=== PATIENT | female | born 1950 | race Caucasian/White ===

== ENCOUNTER 2016-05-18 14:30 | Inpatient (IN) | payer OTHER ==
[~2016-05-18] VITALS: Ht 167.6 cm; Wt 63.5 kg
--- NOTE | 2016-05-18 14:30 | NUR ---
PT BB SELF FROM HOME FOR ABD PAIN X 3 DAYS. NAD NOTED. PT AAO X4, AMBULATORY WITH STEADY GAIT. PT PLACED IN GOWN AND MONITOR. AWAITING MD FOR EVAL.
[2016-05-18 14:53] LABS: BASOPHILS # (AUTO) 0.3 /CMM (0.0-0.2); BASOPHILS % (AUTO) 1.7 % (0.0-2.0); EOSINOPHILS % (AUTO) 0.3 % (0.0-6.0); HEMATOCRIT 39 % (33-45); LYMPHOCYTES % (AUTO) 12.6 % (20.0-44.0); MEAN CORPUSCULAR HEMOGLOBIN 33 PG (26.0-33.0); MEAN CORPUSCULAR HGB CONC 33 g/dl (31.0-36.0); MEAN CORPUSCULAR VOLUME 100 fL (82-100); MONOCYTES # (AUTO) 0.8 /CMM (0.1-1.30); MONOCYTES % (AUTO) 4.9 % (2.0-12.0); NEUTROPHILS # (AUTO) 12.5 /CMM (1.8-8.9); NEUTROPHILS % (AUTO) 80.5 % (43.0-81.0); PLATELET COUNT (AUTO) 249 /CMM (150-450); RDW COEFFICIENT OF VARIATION 13.1 (11.5-15.0); RED BLOOD CELL COUNT(AUTO) 3.91 MIL/uL (4.0-5.2); WHITE BLOOD COUNT (AUTO) 15.6 K/uL (4.3-11.0)
[2016-05-18 14:54] LABS: APPEARANCE,URINE Slightly Cloudy (CLEAR); BILIRUBIN,URINE Negative (NEGATIVE); BLOOD, URINE Moderate Ery/uL (NEGATIVE); COLOR,URINE Yellow (YELLOW); KETONES,URINE Negative (NEGATIVE); LEUKOCYTE ESTERASE ,URINE Small (NEGATIVE); NITRITE, URINE Positive (NEGATIVE); PH,URINE 5.5 (5.0-8.0); PROTEIN,URINE Negative (NEGATIVE); UGLUCOSE Negative (NEGATIVE); UROBILINOGEN,URINE 0.2 EU/dL (0.2)
[2016-05-18 14:58] LABS: ADD URINE CULTURE YES; BACTERIA,URINE Few /HPF (None Seen); RBC,URINE 0-2 /HPF (0-2); URINE AMORPHOUS URATE Few /HPF (None Seen)
[2016-05-18] MEDS ORDERED: MORPHINE SULFATE INJ 2 MG/ML DISP.SYRIN IV ONE (15:00)
[2016-05-18] MEDS ORDERED: ONDANSETRON HCL/PF - ER 4 MG/2 ML VIAL IV ONE (15:00)
[2016-05-18 15:02] LABS: CALCIUM, SERUM 9.3 mg/dL (8.5-10.1); POTASSIUM 3.1 mmol/L (3.5-5.1)
[2016-05-18 15:09] LABS: ALBUMIN 3.6 g/dL (3.4-5.0); BILIRUBIN,DIRECT 0.1 mg/dL (0.0-0.2); BILIRUBIN,TOTAL 0.6 mg/dL (0.2-1.0); TOTAL PROTEIN, SERUM 7.5 g/dL (6.4-8.2)
[2016-05-18] MEDS ORDERED: IV NS 0.9% 250 ML IV ONE (15:17)
[2016-05-18] MEDS ORDERED: MORPHINE SULFATE INJ 2 MG/ML DISP.SYRIN ONE (15:17)
[2016-05-18] MEDS ORDERED: ONDANSETRON HCL/PF 4 MG/2 ML VIAL ONE (15:17)
[2016-05-18] MEDS ORDERED: IOHEXOL-300 100 ML VIAL IV ONE (15:18)
[2016-05-18] MEDS ORDERED: IV NS 0.9% 500 ML IV ONE (16:54)
[2016-05-18] MEDS ORDERED: IV SET PRIMARY 1 EA INFUS.SET MC ONE (16:54)
[2016-05-18] MEDS ORDERED: IV NS 0.9% 500 ML BAG IV ONE (17:00)
--- NOTE | 2016-05-18 17:00 | NUR ---
PAGED DR BARRON AND CALLED NURSING SUP FOR MED/SURG BED
[2016-05-18] MEDS ORDERED: SIMV20TA6 PO (17:08)
[2016-05-18] MEDS ORDERED: LORA10TA7 PO (17:08)
[2016-05-18] MEDS ORDERED: LEVO50TA8 PO (17:08)
[2016-05-18] MEDS ORDERED: ZOLP5TAB2 PO (17:08)
[2016-05-18] MEDS ORDERED: LORA-258 PO (17:08)
[2016-05-18] MEDS ORDERED: ERGO50003 PO (17:08)
--- NOTE | 2016-05-18 17:16 | NUR ---
REPORT GIVEN TO VETO GOODRICH FOR AR
[2016-05-18] MEDS ORDERED: ONDANSETRON HCL/PF 4 MG/2 ML VIAL IVP PRN (18:00)
[2016-05-18] MEDS ORDERED: MORPHINE SULFATE INJ 2 MG/ML DISP.SYRIN IV PRN (18:00)
--- NOTE | 2016-05-18 18:10 | NUR ---
RN MS NOTES RECEIVED PT FROM E.R. STAFF VIA WHEELCHAIR, PT IS ALERT AND ORIENTED, X 4, ASSISTED TO BED, MADE COMFORTABLE, STILL WITH ABDOMINAL PAIN 5/10, NOT IN DISTRESS, ROOM SET UP ORIENTATION PROVIDED TO PT, ASSESSMENT DONE, CALL LIGHT WITHIN REACH, NEEDS ATTENDED.
[2016-05-18 18:31] VITALS: BP 128/65
--- NOTE | 2016-05-18 19:30 | NUR ---
MS [place] INITIAL NOTES RECEIVED REPORT FROM AM NURSE, AND CHECKED THE PT. DX OF PANCREATITIS. PT IN MED AWAKE AND ALERT WATCHING TV ,NO NV/ , COMPLAINING OF PAIN BUT MANAGEABLE AT THIS TIME AND SHE STATED MAYBE LATER "I WILL CALL YOU ". SHE'S NPO AT THIS TIME AND PT AWARE. KEPT HER COMFORTABLE AT ALL TIMES. PLACE CALL LIGHT AT REACH. WILL CONTINUE TO MONITOR.
[2016-05-18] MEDS ORDERED: IV SET PRIMARY PUMP SET 1 EA INFUS.SET MC ONE (19:35)
[2016-05-18 20:00] VITALS: BP 112/66
[2016-05-18] MEDS: IV NS 0.9% 1,000 ML IV PRN (20:39)
[2016-05-18] MEDS ORDERED: ZOLPIDEM TARTRATE 5 MG TABLET ONE (21:13)
[2016-05-18] MEDS ORDERED: ZOLPIDEM TARTRATE 5 MG TABLET PO PRN (21:30)
--- NOTE | 2016-05-18 21:30 | NUR ---
MS [place] NOTES AMBIEN GIVEN PO PER PT REQUESTED AND MD ORDERED. PER DR SHARMA OK TO GIVEN AMBIEN WITH SIP OF WATER. SAFETY PRECAUTION OBSERVED. IVF REMAINS INFUSING AT 150ML/HR ON HER RIGHT AC PATENT AND NO REDNESS NOTED. WILL CONTINUE TO MONITOR.
--- NOTE | 2016-05-19 | NUR ---
MS JUDICIAL CLERK NOTES PT SLEEPING AT THIS TIME , BREATHING EVEN AND UNLABORED. KEPT HER WARM AND COMFORTABLE AT ALL TIMES. PLACE CALL LIGHT AT REACH.
[2016-05-19] MEDS: IV NS 0.9% 1,000 ML IV PRN (05:24)
--- NOTE | 2016-05-19 06:59 | NUR ---
MS GRINDER LAP CLOSING NOTES PT REMAINS SLEEPING COMFORTABLY IN BED BUT AROUSES TO TOUCH, ASKED IF SHE HAVE ANY PAIN BUT SHE STATES STILL ALMOST THE SAME LIKE LAST NIGHT, MANAGEABLE, NO N/V NOTED. IVF NS A 150ML/HR STILL INFUSING. SLEPT WELL AFTER AMBIEN GIVEN LAST NIGHT , WOKE UP ONCE IN A WHILE TO USED THE RESTROOM. KEPT HER COMFORTABLE AT ALL TIMES. WILL ENDORSE TO AM NURSE.
[2016-05-19 07:13] LABS: BASOPHILS % (AUTO) 0.2 % (0.0-2.0); EOSINOPHILS % (AUTO) 0.3 % (0.0-6.0); HEMATOCRIT 35 % (33-45); HEMOGLOBIN 11.8 g/dL (11.5-14.8); LYMPHOCYTES # (AUTO) 1.4 /CMM (0.8-4.8); LYMPHOCYTES % (AUTO) 11.5 % (20.0-44.0); MEAN CORPUSCULAR HEMOGLOBIN 33 PG (26.0-33.0); MEAN CORPUSCULAR HGB CONC 34 g/dl (31.0-36.0); MEAN CORPUSCULAR VOLUME 98 fL (82-100); MONOCYTES # (AUTO) 1.1 /CMM (0.1-1.30); MONOCYTES % (AUTO) 8.8 % (2.0-12.0); NEUTROPHILS % (AUTO) 79.2 % (43.0-81.0); PLATELET COUNT (AUTO) 230 /CMM (150-450); RDW COEFFICIENT OF VARIATION 13.7 (11.5-15.0); RED BLOOD CELL COUNT(AUTO) 3.57 MIL/uL (4.0-5.2); WHITE BLOOD COUNT (AUTO) 12.6 K/uL (4.3-11.0)
[2016-05-19] MEDS ORDERED: LEVOTHYROXINE SODIUM 50 MCG TABLET PO SCH (07:30)
--- NOTE | 2016-05-19 07:36 | NUR ---
AM RN NOTE Received patient awake A/O X3, lying in her bed. Denies any pain at this time. Continue on IV fluids as ordered, IV site intact and patent. Bed in low locked position. Will continue to monitor.
[2016-05-19 07:43] LABS: ALBUMIN 2.6 g/dL (3.4-5.0); BILIRUBIN,TOTAL 0.6 mg/dL (0.2-1.0); CALCIUM, SERUM 8.2 mg/dL (8.5-10.1); MAGNESIUM 1.7 mg/dL (1.8-2.4); PHOSPHORUS 2.7 mg/dL (2.5-4.9); POTASSIUM 3.4 mmol/L (3.5-5.1); TOTAL PROTEIN, SERUM 6.3 g/dL (6.4-8.2)
[2016-05-19 07:54] LABS: THYROID STIMULATING HORMONE 4.273 uIU/mL (0.358-3.74)
[2016-05-19 08:00] VITALS: BP 107/58
[2016-05-19] MEDS ORDERED: PANTOPRAZOLE 40 MG VIAL IV SCH (09:00)
--- NOTE | 2016-05-19 09:05 | NUR ---
AM RN NOTE Patient IV site noted with leakage, re-inserted new site on right forearm #22 x1 attempt. IV fluids continue as ordered. Will continue to monitor. On NPO status.
[2016-05-19] MEDS ORDERED: SECONDARY IV SET 1 EA INFUS.SET MC ONE (11:56)
[2016-05-19] MEDS: POTASSIUM CL. PREMIX PERIPHER. 50 ML IV SCH ×2 (12:08→12:38)
[2016-05-19] MEDS ORDERED: Magnesium 1GM/D5W 100ML PREMIX 100 ML IV SCH (12:25)
[2016-05-19] MEDS ORDERED: MAGNESIUM OXIDE 400 MG TABLET PO ONE (13:46)
[2016-05-19] MEDS ORDERED: POTASSIUM CHLORIDE 10 MEQ TABLET.SA PO ONE (13:47)
--- NOTE | 2016-05-19 14:26 | NUR ---
AM RN NOTE Patient awake, A/O X4 refused another beg of potassium IV and refused Mg IV. Patient prefers PO medication. Called pharmacy spoke with Jackeline olson aware. Medications changed to PO and given to pt. aware.
--- NOTE | 2016-05-19 15:00 | NUR ---
RN NOTE Patient skin intact.
--- NOTE | 2016-05-19 15:30 | NUR ---
AM RN NOTE Patient awake, A/O X4 verbally responsive. Tolerated clear liquid diet well. Denies any pain at this time. New order given by Dr. Richardson to discharge pt home. Discharge instructions on medication, food and teachings given to pt and shows understanding. Paperwork signed by patient. Belongings endorsed. ID band and HL removed. Patient left unit in a w/c at this time as accompanied by RESEARCH PROJECT COORDINATOR and daughter in law (Lucy) to downstairs with all her belongings.
== END 2016-05-19 15:30 | disposition home or self-care (01) | DRG 282 ==
LOC: ER 14:32 → MED 17:56
DX: K85.90 Acute pancreatitis without necrosis or infection, unspecified (principal); K76.0 Fatty (change of) liver, not elsewhere classified; N20.0 Calculus of kidney; Z79.899 Other long term (current) drug therapy; Z87.442 Personal history of urinary calculi; E78.5 Hyperlipidemia, unspecified; E87.6 Hypokalemia; F17.210 Nicotine dependence, cigarettes, uncomplicated; N39.0 Urinary tract infection, site not specified; B96.20 Unspecified Escherichia coli [E. coli] as the cause of diseases classified elsewhere
CPT/HCPCS: 36415; 76705-TC; 80048-TC; 80053-TC; 80061-TC; 80076-TC; 81000-TC; 83690-TC; 83735-TC; 84100-TC; 84443-TC; 84484-TC; 85025-TC; 87081-TC; 87086-TC; 87186-TC; A4606; C9113; J2270; J2405; J3480; J7030; J7040; J7050; Q9967; Z7610

== ENCOUNTER 2017-02-02 07:17 | Outpatient (CLI) | payer MEDICARE, OTHER ==
[~2017-02-02 07:17] MED LIST: ERGO50003 PO; LEVO50TA8 PO; LORA-258 PO; LORA10TA7 PO; SIMV20TA6 PO; ZOLP5TAB2 PO
[2017-02-02] MEDS ORDERED: REGADENOSON 0.4 MG/5 ML DISP.SYRIN IVP ONE (08:00)
== END 2017-02-02 23:59 | disposition home or self-care (01) ==
LOC: NM 07:17
PROVIDERS: ATTEND Internal Medicine Interventional Cardiology
DX: R07.9 Chest pain, unspecified (principal); R06.02 Shortness of breath; F17.200 Nicotine dependence, unspecified, uncomplicated
CPT/HCPCS: 78452; A9502; J2785

== ENCOUNTER 2017-02-11 08:37 | Outpatient (CLI) | payer MEDICARE, OTHER ==
[~2017-02-11 08:37] MED LIST changes: +ERGO500014 PO; -ERGO50003 PO
== END 2017-02-12 23:59 | disposition home or self-care (01) ==
LOC: CT 08:37
PROVIDERS: ATTEND Internal Medicine Interventional Cardiology
DX: R91.8 Other nonspecific abnormal finding of lung field (principal); J92.9 Pleural plaque without asbestos; I25.10 Atherosclerotic heart disease of native coronary artery without angina pectoris; N28.1 Cyst of kidney, acquired; M85.88 Other specified disorders of bone density and structure, other site; Z87.891 Personal history of nicotine dependence
CPT/HCPCS: 71250-TC

== ENCOUNTER → 2017-04-15 | Outpatient (CLI) | payer MEDICARE, OTHER | LOC: CT 09:26 | PROVIDERS: ATTEND Internal Medicine Pulmonary Disease | DX: R91.8 Other nonspecific abnormal finding of lung field (principal); I70.0 Atherosclerosis of aorta; M47.894 Other spondylosis, thoracic region | CPT/HCPCS: 71250-TC ==

== ENCOUNTER 2017-05-04 11:05 | Outpatient (CLI) | payer MEDICARE, OTHER | END 2017-05-04 23:59 | disposition home or self-care (01) | LOC: RAD 11:05 | PROVIDERS: ATTEND Internal Medicine Interventional Cardiology | DX: M89.8X8 Other specified disorders of bone, other site (principal) | CPT/HCPCS: 72070-TC ==

== ENCOUNTER 2017-09-12 07:55 | Outpatient (CLI) | payer MEDICARE, OTHER | END 2017-09-12 23:59 | disposition home or self-care (01) | LOC: WOU 07:55 | PROVIDERS: ATTEND Podiatrist Foot & Ankle Surgery | DX: M79.671 Pain in right foot (principal); M20.21 Hallux rigidus, right foot; R26.89 Other abnormalities of gait and mobility; M21.769 Unequal limb length (acquired), unspecified tibia and fibula; E78.5 Hyperlipidemia, unspecified; Z72.0 Tobacco use; E07.9 Disorder of thyroid, unspecified | CPT/HCPCS: G0463; Z7610 ==

== ENCOUNTER 2017-09-12 09:22 | Outpatient (CLI) | payer MEDICARE, OTHER | END 2017-09-12 23:59 | disposition home or self-care (01) | LOC: RAD 09:22 | PROVIDERS: ATTEND Podiatrist Foot & Ankle Surgery | DX: M79.671 Pain in right foot (principal) | CPT/HCPCS: 73630-TC ==

== ENCOUNTER 2017-09-15 12:43 | Outpatient (CLI) | payer MEDICARE, OTHER | END 2017-09-15 23:59 | disposition home or self-care (01) | LOC: WOU 12:43 | PROVIDERS: ATTEND Podiatrist Foot & Ankle Surgery | DX: M20.21 Hallux rigidus, right foot (principal); R26.89 Other abnormalities of gait and mobility; M21.769 Unequal limb length (acquired), unspecified tibia and fibula | CPT/HCPCS: G0463; Z7610 ==

== ENCOUNTER 2017-11-30 11:15 | Outpatient (CLI) | payer MEDICARE, OTHER ==
[2017-11-30 11:37] LABS: BASOPHILS # (AUTO) 0.1 /CMM (0.0-0.2); BASOPHILS % (AUTO) 1.1 % (0.0-2.0); EOSINOPHILS % (AUTO) 0.7 % (0.0-6.0); HEMATOCRIT 41 % (33-45); HEMOGLOBIN 13.5 g/dL (11.5-14.8); LYMPHOCYTES # (AUTO) 2.3 /CMM (0.8-4.8); LYMPHOCYTES % (AUTO) 28.4 % (20.0-44.0); MEAN CORPUSCULAR HGB CONC 33 g/dl (31.0-36.0); MEAN CORPUSCULAR VOLUME 97 fL (82-100); MONOCYTES # (AUTO) 0.5 /CMM (0.1-1.30); MONOCYTES % (AUTO) 5.9 % (2.0-12.0); NEUTROPHILS # (AUTO) 5.2 /CMM (1.8-8.9); NEUTROPHILS % (AUTO) 63.9 % (43.0-81.0); PLATELET COUNT (AUTO) 331 /CMM (150-450); RDW COEFFICIENT OF VARIATION 12.7 (11.5-15.0); RED BLOOD CELL COUNT(AUTO) 4.18 MIL/uL (4.0-5.2); WHITE BLOOD COUNT (AUTO) 8.2 K/uL (4.3-11.0)
[2017-11-30 11:52] LABS: ALBUMIN 3.5 g/dL (3.4-5.0); BILIRUBIN,TOTAL 0.4 mg/dL (0.2-1.0); CALCIUM, SERUM 9.7 mg/dL (8.5-10.1); CREATININE 1.1 mg/dL (0.6-1.3); POTASSIUM 3.6 mmol/L (3.5-5.1); TOTAL PROTEIN, SERUM 7.6 g/dL (6.4-8.2)
[2017-11-30 12:00] LABS: THYROID STIMULATING HORMONE 0.763 uIU/mL (0.358-3.74)
== END 2017-11-30 23:59 | disposition home or self-care (01) ==
LOC: LAB 11:15
PROVIDERS: ATTEND Internal Medicine Interventional Cardiology
DX: E78.5 Hyperlipidemia, unspecified (principal); E03.9 Hypothyroidism, unspecified; R53.83 Other fatigue
CPT/HCPCS: 36415; 80053-TC; 80061-TC; 84439-TC; 84443-TC; 85025-TC

== ENCOUNTER 2018-06-19 08:34 | Outpatient (CLI) | payer MEDICARE, OTHER | END 2018-06-19 23:59 | disposition home or self-care (01) | LOC: CT 08:34 | DX: K57.30 Diverticulosis of large intestine without perforation or abscess without bleeding (principal); K44.9 Diaphragmatic hernia without obstruction or gangrene; K42.9 Umbilical hernia without obstruction or gangrene; K76.89 Other specified diseases of liver; N26.1 Atrophy of kidney (terminal) ==

== ENCOUNTER 2018-08-23 08:34 | Outpatient (CLI) | payer MEDICARE, OTHER | END 2018-08-23 23:59 | disposition home or self-care (01) | LOC: RAD 08:34 | DX: Z01.818 Encounter for other preprocedural examination (principal); I70.0 Atherosclerosis of aorta; I51.7 Cardiomegaly | CPT/HCPCS: 71046 ==

== ENCOUNTER 2018-09-22 05:18 | Inpatient (IN) | payer MEDICARE, OTHER ==
[~2018-09-22] VITALS: Ht 160 cm; Wt 77.3 kg
[2018-09-22] VITALS (10 sets, daily range): BP systolic 99–108; BP diastolic 45–65
--- NOTE | 2018-09-22 05:30 | NUR ---
MS RN NOTES RECEIVED PT FROM HOME IN STABLE CONDITION FOR DAY SURGERY. PT A/O X3 AND ABLE TO MAKE NEEDS KNOWN. NO COMPLAINTS OF PAIN AT THIS TIME. PT WITH WALKER. RESPIRATIONS EVEN AND UNLABORED WITH NO S/S OF ACUTE DISTRESS OR SOB NOTED. ORIENTED PT TO UNIT AND ROOM AND PT VERBALIZED UNDERSTANDING. SAFETY MEASURES IN PLACE WITH BED IN LOWEST LOCKED POSITION WITH SIDE RAILS UP X2. CALL LIGHT WITHIN REACH. WILL CONTINUE TO MONITOR.
[2018-09-22] MEDS ORDERED: METOCLOPRAMIDE HCL 10 MG/2 ML VIAL IV ONE (06:00)
[2018-09-22] MEDS ORDERED: SODIUM CHLORIDE IRRIG IR ONE (06:00)
[2018-09-22] MEDS ORDERED: TRANEXAMIC ACID IR ONE (06:00)
[2018-09-22] MEDS ORDERED: oxyCODONE HCL SR 10MG TAB.SR.12H PO ONE (06:00)
[2018-09-22] MEDS ORDERED: CELECOXIB 100 MG CAPSULE PO ONE (06:00)
[2018-09-22] MEDS ORDERED: ACETAMINOPHEN ES 500 MG TABLET PO ONE (06:00)
--- NOTE | 2018-09-22 06:05 | NUR ---
MS GOODRICH NOTES PT LEFT UNIT WITH SURGERY. Addendum: 09/22/18 at 0804 by FRANK LEES RN WRONG TIME PUT PT LEFT [id number].
[2018-09-22] MEDS ORDERED: KETOROLAC TROMETHAMINE INJ 30 MG/ML VIAL ONE ×2 (06:48→10:48)
[2018-09-22] MEDS ORDERED: BUPIVACAINE MPF 0.5% W/EPI INJ 30 ML VIAL ONE (06:49)
[2018-09-22] MEDS ORDERED: ANESTHESIA TRAY IN PYXIS 1 EA TRAY MC ONE (06:49)
[2018-09-22] MEDS ORDERED: BACITRACIN 50000 UNITS/VIAL ONE (06:49)
[2018-09-22] MEDS ORDERED: MORPHINE SULFATE INJ 4 MG/ML DISP.SYRIN ONE (06:49)
[2018-09-22] MEDS ORDERED: BUPIVACAINE 0.5 % PF 150 MG/30 ML VIAL ONE (06:49)
[2018-09-22] MEDS ORDERED: ROCURONIUM BROMIDE 50 MG/5 ML ONE ×2 (07:03→08:05)
[2018-09-22] MEDS ORDERED: HYDROMORPHONE INJ 2 MG/ML DISP.SYRIN ONE (07:03)
[2018-09-22] MEDS ORDERED: oxyCODONE IR immediate release 5 MG ONE (10:47)
[2018-09-22] MEDS ORDERED: oxyCODONE IR immediate release 5 MG PO ONE (11:00)
[2018-09-22] MEDS ORDERED: ASPIRIN EC 325 MG TABLET.DR PO ONE (11:00)
[2018-09-22] MEDS ORDERED: KETOROLAC TROMETHAMINE INJ 30 MG/ML VIAL IV ONE (11:30)
[2018-09-22] MEDS ORDERED: HYDROCODONE/APAP 5/325MG 1 EACH TABLET PO PRN ×2 (11:30→13:00)
--- NOTE | 2018-09-22 12:20 | NUR ---
MS RN NOTES PATIENT ARRIVED AT UNIT AT 1215 WITH 2 CLOTH WINDER MACHINE OPERATOR VIA HOSPITAL BED FROM SURGERY, REPORT RECEIVED FROM JEANINE GOODRICH. A/O X 4. ON OXYGEN 2LPM VIA MASK. WITH IVF ON RFA #20 INFUSING WELL. PROVIDED WITH INCENTIVE SPIROMETRY. DRESSING ON RIGHT HIP INTACT. NO ACUTE DISTRESS NOTED AT THIS TIME. PATIENT DENIES ANY PAIN OR DISCOMFORT AT THIS TIME. PATIENT WITH NEW ORDERS FROM DR. CHIN, NOTED AND CARRIED OUT. PATIENT MADE AWARE AND VERBALIZED UNDERSTANDING. WILL CONTINUE TO MONITOR.
[2018-09-22] MEDS ORDERED: Z GUARD REMEDY 2 OZ OINT TP PRN (13:00)
[2018-09-22] MEDS ORDERED: MAGNESIUM HYDROXIDE 30 ML UDC PO PRN ×2 (13:00→13:30)
[2018-09-22] MEDS ORDERED: LORAZEPAM 0.5 MG TABLET PO PRN (13:00)
[2018-09-22] MEDS ORDERED: ACETAMINOPHEN 325 MG TABLET PO PRN ×2 (13:00→13:30)
[2018-09-22] MEDS ORDERED: MAG HYDROX/AL HYDROX/SIMETH 30 ML UDC PO PRN (13:00)
[2018-09-22] MEDS ORDERED: HYDROMORPHONE 1 MG/1 ML DISP.SYRIN IV PRN (13:30)
[2018-09-22] MEDS ORDERED: IV D5/0.45 NACL 1,000 ML IV PRN (13:30)
[2018-09-22] MEDS ORDERED: COLACE 100 MG CAPSULE PO PRN (13:30)
[2018-09-22] MEDS ORDERED: DULCOLAX 10 MG/SUPP.RECT RC PRN (13:30)
[2018-09-22] MEDS ORDERED: AMBIEN 5 MG TABLET PO PRN (13:30)
[2018-09-22] MEDS: ONDANSETRON HCL/PF 4 MG/2 ML VIAL IV SCH ×3 (13:50→23:37)
[2018-09-22] MEDS: HYDROCODONE/APAP 5/325MG 1 EACH TABLET PO PRN (14:13)
[2018-09-22] MEDS: ANCEF 1 G in IV D5W 50 ML IV SCH ×2 (15:13→23:29)
[2018-09-22] MEDS ORDERED: KETOROLAC TROMETHAMINE INJ 30 MG/ML VIAL IV SCH (17:00)
[2018-09-22] MEDS: ASPIRIN 325 MG TABLET PO SCH (17:05)
[2018-09-22] MEDS ORDERED: DICL1KIT14 TP (17:41)
[2018-09-22] MEDS ORDERED: RIVA10TA PO (17:41)
[2018-09-22] MEDS ORDERED: NAPR500T6 PO (17:41)
[2018-09-22] MEDS ORDERED: DRON400T2 PO (17:41)
[2018-09-22] MEDS ORDERED: DICL1ADH11 TP (17:42)
[2018-09-22] MEDS: KETOROLAC TROMETHAMINE 15 MG/ML VIAL IV SCH ×2 (18:53→23:30)
--- NOTE | 2018-09-22 18:58 | NUR ---
MS RN CLOSING NOTES PATIENT AWAKE AND RESTING IN BED AT MODERATE HIGH BACK REST POSITION. A/O X 4. ABLE TO MAKE NEEDS KNOWN. NO SOB NOTED. IV FLUIDS ON RIGHT FA #20 INFUSING WELL. ON F/C PATENT AND INTACT, NO HEMATURIA NOTED. DRESSING INTACT AT RIGHT HIP, S/P RIGHT HIP TOTAL ARTHROPLASTY. ALL NURSING NEEDS AND CARE ATTENDED. CALL LIGHT WITHIN EASY REACH. SAFETY MEASURES KEPT, BED IN LOW LOCKED POSITION, SIDE RAILS UP X2. WILL ENDORSE TO BRANCH SERVICES MANAGER FOR AR.
--- NOTE | 2018-09-22 19:15 | NUR ---
MS RN PM OPENING NOTES BEDSIDE REPORT RECIEVED. PATIENT AWAKE IN BED SEMIFOWLERS POSITION. A/O X 4. NO SOB NOTED. IV FLUIDS ON RIGHT FA #20 WITH NO S/S OF INFILTRATION. F/C DRAINING YELLOW URINE, NO HEMATURIA NOTED. DRESSING [employer] AT RIGHT HIP, HAD S/P RIGHT HIP TOTAL ARTHROPLASTY TODAY. CALL LIGHT WITHIN REACH. BED IN LOW LOCKED POSITION, SIDE RAILS UP X2. WILL CONT TO MONITOR.
[2018-09-22] MEDS: CELECOXIB 100 MG CAPSULE PO SCH (20:51)
[2018-09-22] MEDS: ZOLPIDEM TARTRATE 5 MG TABLET PO SCH (21:11)
[2018-09-23] MEDS: ONDANSETRON HCL/PF 4 MG/2 ML VIAL IV SCH (06:00)
--- NOTE | 2018-09-23 06:00 | NUR ---
rn pm closing note PATIENT AWAKE IN BED SEMIFOWLERS POSITION. A/O X 4. NO SOB NOTED. IV FLUIDS ON RIGHT FA #20 WITH NO S/S OF INFILTRATION. F/C DRAINING YELLOW URINE, NO HEMATURIA NOTED. DRESSING [employer] AT RIGHT HIP, CALL LIGHT WITHIN REACH. BED IN LOW LOCKED POSITION, SIDE RAILS UP X2.
[2018-09-23] MEDS: KETOROLAC TROMETHAMINE 15 MG/ML VIAL IV SCH ×3 (06:20→17:47)
[2018-09-23] MEDS: HYDROCODONE/APAP 5/325MG 1 EACH TABLET PO PRN ×2 (06:25→20:09)
[2018-09-23 06:34] LABS: BASOPHILS % (AUTO) 0.2 % (0.0-2.0); EOSINOPHILS % (AUTO) 0.2 % (0.0-6.0); HEMATOCRIT 30 % (33-45); HEMOGLOBIN 10.1 g/dL (11.5-14.8); LYMPHOCYTES # (AUTO) 1.7 /CMM (0.8-4.8); MEAN CORPUSCULAR HGB CONC 34 g/dl (31.0-36.0); MEAN CORPUSCULAR VOLUME 96 fL (82-100); MONOCYTES # (AUTO) 1.1 /CMM (0.1-1.30); MONOCYTES % (AUTO) 8.7 % (2.0-12.0); NEUTROPHILS # (AUTO) 9.4 /CMM (1.8-8.9); NEUTROPHILS % (AUTO) 76.9 % (43.0-81.0); PLATELET COUNT (AUTO) 271 /CMM (150-450); RED BLOOD CELL COUNT(AUTO) 3.13 MIL/uL (4.0-5.2); WHITE BLOOD COUNT (AUTO) 12.2 K/uL (4.3-11.0)
[2018-09-23 07:00] LABS: CALCIUM, SERUM 8.2 mg/dL (8.5-10.1); CREATININE 1.1 mg/dL (0.6-1.3); MAGNESIUM 1.7 mg/dL (1.8-2.4); PHOSPHORUS 2.7 mg/dL (2.5-4.9); POTASSIUM 3.9 mmol/L (3.5-5.1)
--- NOTE | 2018-09-23 07:28 | NUR ---
MS RN OPENING NOTES RECEIVED PATIENT IN BED RESTING COMFORTABLY. A/O X 4. ABLE TO MAKE NEEDS KNOWN. ON RA, TOLERATING WELL. IV ACCESS ON RIGHT FA, PATENT AND INTACT, CURRENTLY ON HL. NOTED WITH F/C, DRAINING WITH YELLOW URINE. NO HEMATURIA NOTED. NOTED WITH CD[employer] DRESSING ON RIGHT HIP, S/P RIGHT HIP TOTAL ARTHROPLASTY. SAFETY MEASURES IN PLACE, BED IN LOW LOCKED POSITION, SIDE RAILS UP X2. CALL LIGHT WITHIN EASY REACH. WILL CONTINUE TO MONITOR.
[2018-09-23 08:00] VITALS: BP 101/59
[2018-09-23] MEDS: LORATADINE 10 MG TABLET PO SCH (08:05)
[2018-09-23] MEDS: LEVOTHYROXINE SODIUM 50 MCG TABLET PO SCH (08:05)
[2018-09-23] MEDS: ASPIRIN 325 MG TABLET PO SCH ×2 (08:06→16:59)
[2018-09-23] MEDS: CELECOXIB 100 MG CAPSULE PO SCH ×2 (08:06→21:06)
[2018-09-23] MEDS: SIMVASTATIN 20 MG TABLET PO SCH (08:06)
[2018-09-23] MEDS: Magnesium 1GM/D5W 100ML PREMIX 100 ML IV SCH ×2 (10:26→11:39)
[2018-09-23] MEDS ORDERED: ONDANSETRON HCL/PF 4 MG/2 ML VIAL IVP PRN (12:00)
[2018-09-23 16:00] VITALS: BP 99/51
--- NOTE | 2018-09-23 18:45 | NUR ---
MS RN CLOSING NOTES PATIENT IN BED RESTING COMFORTABLY. A/O X 4. ON RA, TOLERATING WELL. IV ACCESS ON RIGHT FA, PATENT AND INTACT, CURRENTLY ON HL. NOTED WITH F/C, DRAINING WITH YELLOW URINE . NOTED WITH [employer] DRESSING ON RIGHT HIP, S/P RIGHT HIP TOTAL ARTHROPLASTY. SAFETY MEASURES IN PLACE, BED IN LOW LOCKED POSITION, SIDE RAILS UP X2. CALL LIGHT WITHIN EASY REACH. WILL ENDORSE TO ENGRAVER WOOD NURSE.
--- NOTE | 2018-09-23 19:00 | NUR ---
RN MS OPENING NOTES RECEIVED PATIENT IN BED AWAKE ALERT AND ORIENTED X4, RESPIRATIONS EVEN AND UNLABORED WITH EQUAL RISE AND FALL OF CHEST, DENIES ANY PAIN OR DISCOMFORT AT THIS TIME, PERKINS CATHETER INTACT AND PATENT DRAINING YELLOW CLEAR, RIGHT HIP DRESSING INTACT , CLEAN AND DRY, SCD'S IN PLACE, IV SITE TO RIGHT FA #20 SL, ORIENTED TO STAFF AND CALL LIGHT AND KEPT WITHIN REACH, PATIENT REPOSITIONED, LOW BED AND LOCKED, SAFETY PRECAUTIONS IN PLACE, ALL NEEDS ATTENDED AT THIS TIME REMAINS COMFORTABLE.
[2018-09-23 20:00] VITALS: BP 106/64
--- NOTE | 2018-09-23 20:09 | NUR ---
RN MS NOTES PATIENT COMPLAINT OF PAIN TO RIGHT LEG, STATES 4-5/10 ACHING PAIN, REQUESTING FOR PAIN MEDICATION , NORCO PRN OFFERED PATIENT AGREED, NORCO PRN GIVEN , VS WNL. WILL CONTINUE TO MONITOR FOR EFFECTIVENESS, PATIENT REPOSITIONED FOR COMFORT.
[2018-09-23] MEDS: ZOLPIDEM TARTRATE 5 MG TABLET PO SCH (21:06)
[2018-09-24] MEDS: KETOROLAC TROMETHAMINE 15 MG/ML VIAL IV SCH ×3 (00:57→12:09)
--- NOTE | 2018-09-24 04:51 | NUR ---
RN MS NOTES PATIENT MADE AWARE OF MD DR. CHIN PLAN OF CARE TO D/C PERKINS IN AM, PATIENT WOULD LIKE TO HAVE IT REMOVED AT THIS TIME, F/C REMOVED PER MD ORDERED, WILL MONITOR FOR URINARY RETENTION OR DIFFICULTY URINATING THROUGHOUT SHIFT.
[2018-09-24 06:12] LABS: BASOPHILS % (AUTO) 0.3 % (0.0-2.0); EOSINOPHILS % (AUTO) 1.5 % (0.0-6.0); HEMATOCRIT 32 % (33-45); HEMOGLOBIN 10.5 g/dL (11.5-14.8); LYMPHOCYTES % (AUTO) 21.3 % (20.0-44.0); MEAN CORPUSCULAR HGB CONC 33 g/dl (31.0-36.0); MEAN CORPUSCULAR VOLUME 97 fL (82-100); MONOCYTES # (AUTO) 0.6 /CMM (0.1-1.30); MONOCYTES % (AUTO) 6.5 % (2.0-12.0); NEUTROPHILS # (AUTO) 6.6 /CMM (1.8-8.9); NEUTROPHILS % (AUTO) 70.4 % (43.0-81.0); PLATELET COUNT (AUTO) 250 /CMM (150-450); RED BLOOD CELL COUNT(AUTO) 3.25 MIL/uL (4.0-5.2); WHITE BLOOD COUNT (AUTO) 9.4 K/uL (4.3-11.0)
[2018-09-24 06:27] LABS: CALCIUM, SERUM 8.3 mg/dL (8.5-10.1); POTASSIUM 3.7 mmol/L (3.5-5.1)
--- NOTE | 2018-09-24 06:42 | NUR ---
RN MS CLOSING NOTES PATIENT IN BED AWAKE ALERT AND ORIENTED X4, RESPIRATIONS EVEN AND UNLABORED WITH EQUAL RISE AND FALL OF CHEST, DENIES ANY PAIN OR DISCOMFORT AT THIS TIME, PERKINS CATHETER REMOVED PER MD PLAN OF CARE TO D/C F/C IN AM ,IN MD NOTES, WILL CONTINUE TO MONITOR FOR VOID RIGHT HIP DRESSING INTACT , CLEAN AND DRY, SCD'S OFF PER PT REQUEST AT THIS TIME, IV SITE TO RIGHT FA #20 SL, CALL LIGHT KEPT WITHIN REACH, PATIENT REPOSITIONED, LOW BED AND LOCKED, SAFETY PRECAUTIONS IN PLACE, ALL NEEDS ATTENDED AT THIS TIME REMAINS COMFORTABLE WILL ENDORSE TO NEXT SHIFT.
--- NOTE | 2018-09-24 07:18 | NUR ---
MS RN OPENING NOTES RECEIVED PATIENT IN BED RESTING COMFORTABLY. A/O X 4. ABLE TO MAKE NEEDS KNOWN. ON RA, TOLERATING WELL. IV ACCESS ON RIGHT FA, PATENT AND INTACT, CURRENTLY ON HL. NOTED WITH CD[employer] DRESSING ON RIGHT HIP, S/P RIGHT HIP TOTAL ARTHROPLASTY. SAFETY MEASURES IN PLACE, BED IN LOW LOCKED POSITION, SIDE RAILS UP X2. CALL LIGHT WITHIN EASY REACH. WILL CONTINUE TO MONITOR.
[2018-09-24] MEDS: LEVOTHYROXINE SODIUM 50 MCG TABLET PO SCH (07:36)
[2018-09-24 08:09] VITALS: BP 115/56
[2018-09-24] MEDS: SIMVASTATIN 20 MG TABLET PO SCH (09:06)
[2018-09-24] MEDS: CELECOXIB 100 MG CAPSULE PO SCH (09:06)
[2018-09-24] MEDS: LORATADINE 10 MG TABLET PO SCH (09:06)
--- NOTE | 2018-09-24 14:30 | NUR ---
MS RN DISCHARGED NOTES PATIENT DISCHARGED IN STABLE CONDITION. A/O X 4. ABLE TO MAKE NEEDS KNOWN. V/S TAKEN, STABLE AND RECORDED. PATIENT'S IV ACCESS REMOVED AND APPLIED PRESSURE DRESSING. SKIN IS INTACT. NAME ARM BAND REMOVED. ALL BELONGINGS CHECKED AND SIGNED. HEALTH TEACHINGS/DISCHARGED INSTRUCTIONS GIVEN AND VERBALIZED UNDERSTANDING. PATIENT LEFT UNIT VIA WHEELCHAIR WITH NO ACUTE SIGNS OF DISTRESS. PATIENT ASSISTED TO THE LOBBY BY HOSPITAL STAFF AND FAMILY. CHARGE NURSE MADE AWARE OF DISCHARGED.
[2018-09-24] MEDS ORDERED: RIVAROXABAN 10 MG TABLET PO SCH (17:00)
[2018-09-25] MEDS ORDERED: ERGOCALCIFEROL (VITAMIN D 2) 50,000 UNIT CAPSULE PO SCH (09:00)
== END 2018-09-24 14:35 | disposition home health service (06) | DRG 470 ==
LOC: DS 05:18 → MED 05:21
PROVIDERS: ADMIT Family Medicine; ATTEND Family Medicine
PROC: 0SR90JZ Replacement of Right Hip Joint with Synthetic Substitute, Open Approach (ICD-10-PCS; principal; 2018-09-22)
DX: M16.11 Unilateral primary osteoarthritis, right hip (principal); M87.9 Osteonecrosis, unspecified; J98.11 Atelectasis; D72.829 Elevated white blood cell count, unspecified; E66.9 Obesity, unspecified; E03.9 Hypothyroidism, unspecified; E78.5 Hyperlipidemia, unspecified; E83.42 Hypomagnesemia; I10 Essential (primary) hypertension; Z87.442 Personal history of urinary calculi; Z90.710 Acquired absence of both cervix and uterus; Z68.30 Body mass index [BMI] 30.0-30.9, adult
CPT/HCPCS: 36415; 72170-TC; 73501; 80048-TC; 80061-TC; 83735-TC; 84100-TC; 85025-TC; 85610-TC; 85730-TC; 87081-TC; 88305-TC; 97116-TC; 97530-TC; A4217; G0378; J0360; J0690; J1100; J1170; J1885; J2270; J2405; J2704; J2710; J2765; J3475; J3490; J7060

== ENCOUNTER 2020-10-15 08:54 | Outpatient (CLI) | payer MEDICARE, OTHER ==
[~2020-10-15 08:54] MED LIST changes: +DICL1PAT11 TP; +DRON400T6 PO; +NAPR500T6 PO; +RIVA10TA PO; +SIMV-46 PO; -SIMV20TA6 PO
== END 2020-10-15 23:59 | disposition home or self-care (01) ==
LOC: US 08:54
DX: N20.0 Calculus of kidney (principal); N28.1 Cyst of kidney, acquired; I70.0 Atherosclerosis of aorta
CPT/HCPCS: 76700-TC; 76856-TC

== ENCOUNTER 2021-01-05 08:15 | Outpatient (CLI) | payer MEDICARE, OTHER | END 2021-01-05 23:59 | disposition home or self-care (01) | LOC: WOU 08:15 | PROVIDERS: ATTEND Podiatrist Foot & Ankle Surgery | DX: L60.3 Nail dystrophy (principal); L84 Corns and callosities; R26.2 Difficulty in walking, not elsewhere classified; M79.672 Pain in left foot; M79.671 Pain in right foot | CPT/HCPCS: G0463 ==

== ENCOUNTER 2021-06-01 09:06 | Outpatient (CLI) | payer MEDICARE, OTHER | END 2021-06-01 23:59 | disposition home or self-care (01) | LOC: RAD 09:06 | PROVIDERS: ATTEND Orthopaedic Surgery | DX: I10 Essential (primary) hypertension (principal); Z96.643 Presence of artificial hip joint, bilateral | CPT/HCPCS: 73502 ==

== ENCOUNTER 2022-09-29 14:56 | Inpatient (IN) | payer MEDICARE, OTHER ==
[~2022-09-29] VITALS: Ht 160 cm; Wt 72.1 kg
[2022-09-29] MEDS ORDERED: ONDANSETRON HCL/PF 4 MG/2 ML VIAL IVP ONE (15:30)
[2022-09-29] MEDS ORDERED: IV NS 0.9% 1,000 ML BAG IV ONE (15:30)
[2022-09-29] MEDS ORDERED: MORPHINE SULFATE INJ 2 MG/ML DISP.SYRIN IV ONE (15:30)
[2022-09-29 15:35] LABS: BASOPHILS % (AUTO) 0.2 % (0.0-2.0); EOSINOPHILS % (AUTO) 0.1 % (0.0-6.0); HEMATOCRIT 42 % (33-45); LYMPHOCYTES # (AUTO) 0.5 K/uL (0.8-4.8); MEAN CORPUSCULAR HEMOGLOBIN 32 PG (26.0-33.0); MEAN CORPUSCULAR HGB CONC 33 g/dl (31.0-36.0); MEAN CORPUSCULAR VOLUME 97 fL (82-100); MONOCYTES # (AUTO) 1.1 K/uL (0.1-1.30); MONOCYTES % (AUTO) 11.3 % (2.0-12.0); NEUTROPHILS # (AUTO) 8.1 K/uL (1.8-8.9); NEUTROPHILS % (AUTO) 83.4 % (43.0-81.0); PLATELET COUNT (AUTO) 293 K/uL (150-450); RED BLOOD CELL COUNT(AUTO) 4.36 MIL/uL (4.0-5.2); RED CELL DISTRIBUTION WIDTH 13.8 % (11.5-15.0); WHITE BLOOD COUNT (AUTO) 9.8 K/uL (4.3-11.0)
[2022-09-29] MEDS ORDERED: ONDANSETRON HCL/PF 4 MG/2 ML VIAL ONE (15:45)
[2022-09-29] MEDS ORDERED: MORPHINE SULFATE INJ 4 MG/ML DISP.SYRIN ONE (15:45)
[2022-09-29 15:48] LABS: INR 1.18 (0.91-1.10); PARTIAL THROMBOPLASTIN TIME 31.5 SEC (24.3-34.3); PROTHROMBIN TIME 12.3 SECS (9.2-11.1)
[2022-09-29 15:52] LABS: CALCIUM, SERUM 9.8 mg/dL (8.5-10.1); CREATININE 1.4 mg/dL (0.6-1.3); POTASSIUM 3.3 mmol/L (3.5-5.1)
[2022-09-29 15:57] LABS: ALBUMIN 3.1 g/dL (3.4-5.0); BILIRUBIN,TOTAL 6.7 mg/dL (0.2-1.0); TOTAL PROTEIN, SERUM 7.4 g/dL (6.4-8.2)
[2022-09-29] MEDS ORDERED: IOHEXOL-300 100 ML VIAL IV ONE (16:28)
[2022-09-29] MEDS ORDERED: IV NS 0.9% 250 ML IV ONE (16:28)
[2022-09-29] MEDS ORDERED: FEBU40TA PO (17:21)
[2022-09-29] MEDS ORDERED: DICL100G34 TP (17:21)
[2022-09-29] MEDS ORDERED: Z GUARD REMEDY 4 OZ OINT TP PRN (17:30)
[2022-09-29] MEDS ORDERED: MORPHINE SULFATE INJ 2 MG/ML DISP.SYRIN IV PRN (17:30)
[2022-09-29] MEDS ORDERED: ONDANSETRON HCL/PF 4 MG/2 ML VIAL IVP PRN (17:30)
[2022-09-29] MEDS ORDERED: ASPI-1169 PO (18:15)
[2022-09-29] MEDS ORDERED: [UNRECOGNIZED DRUG - REMARK] PO (18:15)
[2022-09-29] MEDS ORDERED: ENOXAPARIN SODIUM 30 MG/0.3 ML DISP.SYRIN SQ SCH (18:30)
[2022-09-29] MEDS: IV D5/0.45 NACL 1,000 ML IV PRN (18:38)
[2022-09-29 20:00] VITALS: BP 128/57; TEMP 98; O2SAT 100
[2022-09-30] VITALS: BP 138/61; TEMP 98; O2SAT 100
[2022-09-30 01:15] LABS: APPEARANCE,URINE CLEAR (CLEAR); BILIRUBIN,URINE 3+ (NEGATIVE); BLOOD, URINE 3+ Ery/uL (NEGATIVE); COLOR,URINE DARK YELLOW (YELLOW); KETONES,URINE TRACE mg/dL (NEGATIVE); LEUKOCYTE ESTERASE ,URINE NEGATIVE (NEGATIVE); NITRITE, URINE POSITIVE (NEGATIVE); PROTEIN,URINE 3+ mg/dl (NEGATIVE); UGLUCOSE TRACE mg/dL (NEGATIVE)
[2022-09-30 01:30] LABS: ADD URINE CULTURE YES; BACTERIA,URINE 4+ /HPF (None Seen); MUCUS,URINE Moderate /LPF (None Seen)
[2022-09-30] MEDS: IV D5/0.45 NACL 1,000 ML IV PRN (03:52)
[2022-09-30 04:00] VITALS: BP 105/52; TEMP 98; O2SAT 100
[2022-09-30 06:38] LABS: BASOPHILS % (AUTO) 0.4 % (0.0-2.0); EOSINOPHILS # (AUTO) 0.1 K/uL (0.0-0.7); HEMATOCRIT 40 % (33-45); HEMOGLOBIN 13.4 g/dL (11.5-14.8); LYMPHOCYTES # (AUTO) 0.8 K/uL (0.8-4.8); LYMPHOCYTES % (AUTO) 13.8 % (20.0-44.0); MEAN CORPUSCULAR HEMOGLOBIN 32 PG (26.0-33.0); MEAN CORPUSCULAR HGB CONC 34 g/dl (31.0-36.0); MEAN CORPUSCULAR VOLUME 97 fL (82-100); MONOCYTES # (AUTO) 0.9 K/uL (0.1-1.30); MONOCYTES % (AUTO) 16.4 % (2.0-12.0); NEUTROPHILS # (AUTO) 3.9 K/uL (1.8-8.9); NEUTROPHILS % (AUTO) 67.4 % (43.0-81.0); PLATELET COUNT (AUTO) 237 K/uL (150-450); RED BLOOD CELL COUNT(AUTO) 4.14 MIL/uL (4.0-5.2); RED CELL DISTRIBUTION WIDTH 13.9 % (11.5-15.0); WHITE BLOOD COUNT (AUTO) 5.8 K/uL (4.3-11.0)
[2022-09-30 07:28] LABS: MAGNESIUM 1.9 mg/dL (1.8-2.4); PHOSPHORUS 1.8 mg/dL (2.5-4.9); POTASSIUM 3.1 mmol/L (3.5-5.1)
[2022-09-30 08:00] VITALS: BP 130/65; TEMP 98.3; O2SAT 96
[2022-09-30] MEDS ORDERED: COLC0.6T67 PO (08:48)
[2022-09-30] MEDS ORDERED: ZOLP5TAB2 PO (08:48)
[2022-09-30] MEDS ORDERED: CLON0.5T4 PO (08:48)
[2022-09-30] MEDS ORDERED: TRAM50TA2 PO (08:48)
[2022-09-30] MEDS ORDERED: PANTOPRAZOLE 40 MG VIAL IV SCH (09:00)
[2022-09-30] MEDS ORDERED: POTASSIUM PHOSPHATE MM 15 MMOL in IV NS 0.9% 250 ML IV SCH (09:30)
[2022-09-30] MEDS: POTASSIUM PHOSPHATE MM 7.5 MMOL in IV NS 0.9% 100 ML IV SCH ×2 (10:30→13:15)
[2022-09-30 12:00] VITALS: BP 117/63; TEMP 98.2; O2SAT 97
[2022-09-30 12:52] LABS: ALBUMIN 2.6 g/dL (3.4-5.0); BILIRUBIN,DIRECT 4.7 mg/dL (0.0-0.2); BILIRUBIN,TOTAL 5.4 mg/dL (0.2-1.0); TOTAL PROTEIN, SERUM 6.5 g/dL (6.4-8.2)
[2022-09-30] MEDS ORDERED: DIGOXIN INJ 0.5 MG/2 ML AMPUL IV ONE ×2 (14:30→20:30)
[2022-10-01] MEDS ORDERED: DIGOXIN INJ 0.5 MG/2 ML AMPUL IV ONE (02:30)
== END 2022-09-30 16:30 | disposition left against medical advice (07) | DRG 439 ==
LOC: ER 14:58 → TELE1 17:37
DX: K85.10 Biliary acute pancreatitis without necrosis or infection (principal); N17.9 Acute kidney failure, unspecified; N39.0 Urinary tract infection, site not specified; I48.91 Unspecified atrial fibrillation; N20.0 Calculus of kidney; E03.9 Hypothyroidism, unspecified; E78.5 Hyperlipidemia, unspecified; I10 Essential (primary) hypertension; Z87.442 Personal history of urinary calculi; Z90.710 Acquired absence of both cervix and uterus; Z90.49 Acquired absence of other specified parts of digestive tract; Z87.448 Personal history of other diseases of urinary system; Z98.890 Other specified postprocedural states; Z79.01 Long term (current) use of anticoagulants; Z79.899 Other long term (current) drug therapy; Z79.890 Hormone replacement therapy; M19.90 Unspecified osteoarthritis, unspecified site; K82.8 Other specified diseases of gallbladder; K86.89 Other specified diseases of pancreas
CPT/HCPCS: 36415; 71045-TC; 74181-TC; 76705-TC; 80048-TC; 80076-TC; 81001; 83690-TC; 83735-TC; 84100-TC; 85025-TC; 85730-TC; 87086-TC; 93307-TC; A4223; C9113; G0378; J1160; J1650; J2270; J2405; J3490; J7030; J7050; Q9967

== ENCOUNTER 2023-03-28 10:59 | Emergency (ER) | payer MEDICARE, OTHER ==
[~2023-03-28] VITALS: Ht 160 cm; Wt 70.8 kg
[~2023-03-28 10:59] MED LIST changes: +ASPI-1169 PO; +CLON0.5T4 PO; +COLC0.6T67 PO; +DICL100G34 TP; -DICL1PAT11 TP; +FEBU40TA PO; -LORA-258 PO; -NAPR500T6 PO; +TRAM50TA2 PO
[2023-03-28] MEDS ORDERED: HYDROCODONE/APAP 5/325MG TABLET PO ONE (11:30)
[2023-03-28] MEDS ORDERED: IBUPROFEN 600 MG TABLET PO ONE (11:30)
[2023-03-28] MEDS ORDERED: HYDROCODONE/APAP 5/325MG TABLET ONE (11:33)
[2023-03-28] MEDS ORDERED: IBUPROFEN 600 MG TABLET ONE (11:33)
[2023-03-28 12:05] LABS: BASOPHILS # (AUTO) 0.1 K/uL (0.0-0.2); BASOPHILS % (AUTO) 0.9 % (0.0-2.0); EOSINOPHILS % (AUTO) 0.2 % (0.0-6.0); HEMATOCRIT 41 % (33-45); HEMOGLOBIN 13.7 g/dL (11.5-14.8); LYMPHOCYTES # (AUTO) 1.4 K/uL (0.8-4.8); LYMPHOCYTES % (AUTO) 19.8 % (20.0-44.0); MEAN CORPUSCULAR HEMOGLOBIN 32 PG (26.0-33.0); MEAN CORPUSCULAR HGB CONC 33 g/dl (31.0-36.0); MEAN CORPUSCULAR VOLUME 96 fL (82-100); MONOCYTES # (AUTO) 0.7 K/uL (0.1-1.30); NEUTROPHILS # (AUTO) 4.9 K/uL (1.8-8.9); NEUTROPHILS % (AUTO) 69.1 % (43.0-81.0); PLATELET COUNT (AUTO) 229 K/uL (150-450); RED CELL DISTRIBUTION WIDTH 14.5 % (11.5-15.0); WHITE BLOOD COUNT (AUTO) 7.1 K/uL (4.3-11.0)
[2023-03-28 12:07] LABS: CALCIUM, SERUM 9.1 mg/dL (8.5-10.1); CREATININE 1.3 mg/dL (0.6-1.3)
[2023-03-28 12:12] LABS: ALBUMIN 3.4 g/dL (3.4-5.0); BILIRUBIN,DIRECT 0.1 mg/dL (0.0-0.2); BILIRUBIN,TOTAL 0.4 mg/dL (0.2-1.0); TOTAL PROTEIN, SERUM 8.1 g/dL (6.4-8.2)
[2023-03-28 12:27] LABS: INR 1.24 (0.91-1.10); PARTIAL THROMBOPLASTIN TIME 48.5 SEC (24.3-34.3)
[2023-03-28] MEDS ORDERED: POTASSIUM CHLORIDE 20 MEQ TAB.PRT.SR PO ONE (12:30)
[2023-03-28] MEDS ORDERED: HYDR-3972 PO (13:15)
[2023-03-28 13:29] VITALS: BP 135/84; TEMP 98.1; O2SAT 100
== END 2023-03-28 13:30 | disposition home or self-care (01) ==
LOC: ER 10:59
DX: M25.562 Pain in left knee (principal); R55 Syncope and collapse; I10 Essential (primary) hypertension; I48.91 Unspecified atrial fibrillation; E03.9 Hypothyroidism, unspecified; Z87.442 Personal history of urinary calculi; Z96.643 Presence of artificial hip joint, bilateral; Z90.710 Acquired absence of both cervix and uterus; Z90.89 Acquired absence of other organs; Z79.899 Other long term (current) drug therapy
CPT/HCPCS: 36415; 70450-TC; 71045-TC; 73502; 73562; 80048-TC; 80076-TC; 85025-TC; 85730-TC

== ENCOUNTER 2024-08-26 07:22 | Inpatient (IN) | payer MEDICARE, OTHER ==
[~2024-08-26] VITALS: Ht 160 cm; Wt 70.8 kg
[~2024-08-26 07:22] MED LIST changes: +HYDR-3972 PO
[2024-08-26] MEDS ORDERED: MORPHINE SULFATE INJ 4 MG/ML DISP.SYRIN ONE (07:42)
[2024-08-26] MEDS ORDERED: ONDANSETRON HCL/PF 4 MG/2 ML VIAL ONE (07:42)
[2024-08-26] MEDS: IV NS 0.9% 1,000 ML BAG IV ONE (07:50)
[2024-08-26] MEDS: ONDANSETRON HCL/PF 4 MG/2 ML VIAL IVP ONE (07:51)
[2024-08-26] MEDS: MORPHINE SULFATE INJ 2 MG/ML DISP.SYRIN IV ONE (07:51)
[2024-08-26 07:52] LABS: PLATELET COUNT (AUTO) 354 K/uL (150-450); RED BLOOD CELL COUNT(AUTO) 4.30 MIL/uL (4.0-5.2); RED CELL DISTRIBUTION WIDTH 13.3 % (11.5-15.0); WHITE BLOOD COUNT (AUTO) 14.1 K/uL (4.3-11.0)
[2024-08-26 08:06] LABS: ASPARTATE AMINOTRANSFERASE 13 U/L (15-37); CALCIUM, SERUM 9.1 mg/dL (8.5-10.1); CREATININE 1.4 mg/dL (0.6-1.3); SODIUM SERUM 136 mmol/L (136-145); TOTAL PROTEIN, SERUM 7.8 g/dL (6.4-8.2); UREA NITROGEN, BLOOD 19 mg/dL (7-18)
[2024-08-26] MEDS ORDERED: FLEC100T2 PO (09:25)
[2024-08-26] MEDS ORDERED: PANT40TA2 PO (09:25)
[2024-08-26] MEDS ORDERED: ALLO300T2 PO (09:25)
[2024-08-26] MEDS ORDERED: EZET10TA15 PO (09:25)
[2024-08-26] MEDS ORDERED: MELO-107 PO (09:25)
[2024-08-26] MEDS ORDERED: LINA290C PO (09:25)
[2024-08-26] MEDS ORDERED: DOXE6TAB4 PO (09:25)
[2024-08-26] MEDS ORDERED: MAGN500C17 PO (09:25)
[2024-08-26] MEDS ORDERED: FAMOTIDINE/PF INJ 20 MG/2 ML VIAL IV ONE (10:11)
[2024-08-26] MEDS: FAMOTIDINE/PF INJ 20 MG/2 ML VIAL IV SCH (10:13)
[2024-08-26] MEDS ORDERED: MAG HYDROX/AL HYDROX/SIMETH 30 ML UDC PO PRN (11:30)
[2024-08-26] MEDS ORDERED: ONDANSETRON HCL/PF 4 MG/2 ML VIAL IVP PRN (11:30)
[2024-08-26] MEDS ORDERED: ACETAMINOPHEN 325 MG TABLET PO PRN (11:30)
[2024-08-26] MEDS ORDERED: Z GUARD REMEDY 4 OZ OINT TP PRN (11:30)
[2024-08-26] MEDS ORDERED: MAGNESIUM HYDROXIDE 30 ML UDC PO PRN (11:30)
[2024-08-26] MEDS: PANTOPRAZOLE 40 MG VIAL IV SCH (11:42)
[2024-08-26] MEDS: IV NS 0.9% 1,000 ML IV PRN (11:45)
[2024-08-26] MEDS ORDERED: PIPERACILLIN /TAZOBACTAM 3.375 G in IV D5W 50 ML IV SCH (12:00)
[2024-08-26] MEDS: CEFTRIAXONE 1 G in IV D5W 50 ML IV SCH (12:15)
[2024-08-26 16:08] VITALS: BP 112/54; TEMP 97.8; O2SAT 95
[2024-08-26 17:36] LABS: APPEARANCE,URINE CLOUDY (CLEAR); BLOOD, URINE TRACE-INTA Ery/uL (NEGATIVE); LEUKOCYTE ESTERASE ,URINE 1+ (NEGATIVE); NITRITE, URINE NEGATIVE (NEGATIVE); UGLUCOSE NEGATIVE (NEGATIVE)
[2024-08-26 17:49] LABS: SQUAMOUS EPITHELIAL CELL,UR Many /HPF (None Seen)
[2024-08-26 17:50] LABS: ADD URINE CULTURE YES
[2024-08-26 20:38] VITALS: BP 114/52; TEMP 99.7; O2SAT 91
[2024-08-27 07:06] LABS: CALCIUM, SERUM 8.7 mg/dL (8.5-10.1); CREATININE 0.9 mg/dL (0.6-1.3); PHOSPHORUS 2.3 mg/dL (2.5-4.9); SODIUM SERUM 139.0 mmol/L (136-145); UREA NITROGEN, BLOOD 18.0 mg/dL (7-18)
[2024-08-27 07:12] LABS: PLATELET COUNT (AUTO) 290 K/uL (150-450); RED BLOOD CELL COUNT(AUTO) 3.79 MIL/uL (4.0-5.2); RED CELL DISTRIBUTION WIDTH 13.2 % (11.5-15.0); WHITE BLOOD COUNT (AUTO) 9.8 K/uL (4.3-11.0)
[2024-08-27 08:00] VITALS: BP 98/56; TEMP 98.4; O2SAT 95
[2024-08-27] MEDS: LEVOTHYROXINE SODIUM 50 MCG TABLET PO SCH (08:30)
[2024-08-27] MEDS ORDERED: FLECAINIDE ACETATE (100 MG) 100 MG TABLET PO SCH (08:30)
[2024-08-27 15:41] LABS: LDL 49.0 mg/dL (0-99)
== END 2024-08-27 13:55 | disposition home health service (06) | DRG 438 ==
LOC: ER 07:22 → MED 09:44
PROVIDERS: ADMIT Internal Medicine; ATTEND Internal Medicine
DX: K85.90 Acute pancreatitis without necrosis or infection, unspecified (principal); N17.0 Acute kidney failure with tubular necrosis; R18.8 Other ascites; R65.10 Systemic inflammatory response syndrome (SIRS) of non-infectious origin without acute organ dysfunction; K29.80 Duodenitis without bleeding; I48.0 Paroxysmal atrial fibrillation; K44.9 Diaphragmatic hernia without obstruction or gangrene; K52.9 Noninfective gastroenteritis and colitis, unspecified; K27.9 Peptic ulcer, site unspecified, unspecified as acute or chronic, without hemorrhage or perforation; I10 Essential (primary) hypertension; E03.9 Hypothyroidism, unspecified; Z87.448 Personal history of other diseases of urinary system; M19.90 Unspecified osteoarthritis, unspecified site; Z96.643 Presence of artificial hip joint, bilateral; Z87.442 Personal history of urinary calculi; Z90.710 Acquired absence of both cervix and uterus; Z90.49 Acquired absence of other specified parts of digestive tract; Z98.890 Other specified postprocedural states; Z79.82 Long term (current) use of aspirin; Z79.01 Long term (current) use of anticoagulants; Z79.890 Hormone replacement therapy; Z79.899 Other long term (current) drug therapy; Z68.27 Body mass index [BMI] 27.0-27.9, adult; E66.9 Obesity, unspecified; K86.9 Disease of pancreas, unspecified; E78.5 Hyperlipidemia, unspecified; F41.9 Anxiety disorder, unspecified; N20.0 Calculus of kidney; Z87.19 Personal history of other diseases of the digestive system
CPT/HCPCS: 36415; 71045-TC; 76705-TC; 80048-TC; 80061-TC; 80076-TC; 81001; 83690-TC; 83735-TC; 84100-TC; 84439-TC; 84443-TC; 84484-TC; 85025-TC; 87086-TC; A4223; G0378; J0696; J1308; J2270; J2405; J2470; J2543; J7030; J7050; J7060